=== PATIENT | female | born 1985 ===

== ENCOUNTER → 2022-12-03 | Outpatient (CLI) | payer MEDICAID | LOC: LAB FS 18:01 | PROVIDERS: ATTEND Registered Nurse Emergency | DX: N89.8 Other specified noninflammatory disorders of vagina (principal) | CPT/HCPCS: 36415; 87210; 87491; 87591 ==

== ENCOUNTER → 2022-12-30 | Outpatient (CLI) | payer MEDICAID ==
--- NOTE | 2022-12-30 17:29 | Diagnostic Imaging Report ---
EXAMINATION: Chest 2 view HISTORY: Dyspnea COMPARISON: None available. FINDINGS: Heart size and pulmonary vasculature are normal. The lungs are clear without consolidation, pleural effusion, or pneumothorax. The osseous structures are intact. IMPRESSION: 1. No acute radiographic abnormality in the chest. Dictated by: Dictated on workstation # [id number]
== END ==
LOC: RAD FS 16:53
PROVIDERS: ATTEND Registered Nurse Emergency
DX: R06.00 Dyspnea, unspecified (principal)
CPT/HCPCS: 71046

== ENCOUNTER → 2023-05-13 | Outpatient (CLI) | payer MEDICAID | LOC: GIR 17:23 | PROVIDERS: ATTEND Registered Nurse Emergency | DX: N89.8 Other specified noninflammatory disorders of vagina (principal) | CPT/HCPCS: 87210; 87491 ==